=== PATIENT | male | born 1950 | race Caucasian/White ===

== ENCOUNTER 2016-08-07 11:48 | Inpatient (IN) | payer BC, MEDICARE ==
--- NOTE | ~2016-08-07 | DS ---
Discharge Summary [facility] [address] [facility] [place]. [address] NAME: PASTORA RODRIGUES : 48 STATUS : DIS IN PAT#: [id number] AGE: 65 ADM/REG DATE : 08/07/16 MR#: [id number] REPORT SERV DATE: 08/19/16 DICTATED BY: SARAHI WAGNER III DATE: 08/19/16 REPORT STATUS : Draft TRANSCRIBED BY: ROBINSON DATE: 08/19/16 Data Collection from hospitalization DISCHARGE DIAGNOSES: 1. Newton-zone lymphoma. 2. Hypertension. 3. Diabetes mellitus. 4. History of stroke. 5. Gastroesophageal reflux disease. 6. Hypertension. 7. Former smoker. CONSULTATIONS: None. PROCEDURES: None. DISCHARGE MEDICATIONS: Aspirin 325 mg daily, Prinivil 20 mg every day at bedtime, melatonin 6 mg at bedtime, Glucophage 500 mg at bedtime, fish oil 1000 mg daily, Prilosec 20 mg every day at bedtime, Zofran 8 mg every 8 hours as needed, Percocet 5/325 one tablet every four hours as needed, Compazine 10 mg every six hours as needed, Crestor 10 mg at bedtime, Bactrim DS one tablet three times a week, and Sonata 10 mg at bedtime as needed. CONDITION AT DISCHARGE: Stable. DISPOSITION: The patient was discharged home on a regular diet with activities as instructed. He would follow up with Dr. Venkat Woods on 08/13/2016, and with Dr. Woods on 08/16/2016. 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 He had completed cycle one of DA-R-EPOCH. He tolerated this were remarkably well. He denied any nausea. His bowels were regular. He did have some neuropathy in his fingers, but no pain, and no function deficit. Lymph node mass was greatly reduced. He denied any new complaints. He felt ready for chemotherapy. He was admitted to the hospital at this time for further evaluation and treatment. Upon admission, plans were made to proceed with cycle two chemotherapy. Statin and aspirin were continued. Metformin and sliding scale insulin would be provided. Neulasta would be arranged as an outpatient. The following day, day #2, cycle two continued. He had no problems overnight other than sleeping poorly. Blood pressure medications were continued, as well as Bactrim and proton pump inhibitor. Melatonin and Ambien were being given for his insomnia. On 08/09/2016, he had no nausea, he said he slept well. He had no edema. His lungs were clear. Blood sugars were elevated, but controlled with metformin and sliding scale insulin. Blood pressure remained controlled. The next day, he had no new complaints. Discharge planning was performed. Blood glucose levels were mildly elevated on prednisone. Discharge planning was performed. On 08/11/2016, he continued to progress. He was alert and cooperative. Discharge instructions were given. Due to his improved and stable condition, he was discharged home with the above-stated instructions. Discharge Summary [address] [address] NAME: PASTORA RODRIGUES : 48 STATUS : DIS IN PAT#: [id number] AGE: 65 ADM/REG DATE : 08/07/16 MR#: [id number] REPORT SERV DATE: 08/19/16 DICTATED BY: SARAHI WAGNER III DATE: 08/19/16 REPORT STATUS : Draft TRANSCRIBED BY: ROBINSON DATE: 08/19/16 Information collected by: Margaux Arreola I submit the above information as my discharge summary. EMANUEL/ROBINSON Sarahi Wagner III, M.D. / [id number] CC: MD Liborio Hurtado M.D.
[~2016-08-07 11:48] MED LIST: ASA5GR PO; BACDS PO; BENICAR20 PO; COMP10B PO; CRESTOR10 PO; FISH-EPA1000 MG PO; GLUCPH PO; MELATONIN10 M2 PO; PCET PO; PRILO PO; PRIN20 PO; SONATA10 MG PO; ZOFRANODT8 PO
[2016-08-07 12:59] LABS: BASOPHILS 0.3 %; BASOPHILS ABSOLUTE 0.03 10/3/uL (0.0-0.16); EOSINOPHILS 0 %; HEMATOCRIT 36.8 % (40.0-51.0); HEMOGLOBIN 12.4 g/dL (13.6-17.8); IMMATURE GRANULOCYTES 0.3 %; IMMATURE GRANULOCYTES ABSOLUTE 0.03 10/3/uL (0.0-0.11); LYMPHOCYTES 10.4 %; MANUAL DIFF NO %; MEAN CORPUS HGB CONC 33.7 g/dL (32.0-36.0); MEAN CORPUSCULAR HEMOGLOB 29.4 pg (26.0-34.0); MEAN CORPUSCULAR VOLUME 87.2 fL (80-100); MEAN PLATELET VOLUME 10.3 fL (9.2-13.0); MONOCYTES 6.9 %; NEUTROPHILS 82.1 %; NEUTROPHILS ABSOLUTE 7.09 10/3/uL (2.02-8.40); PLATELET COUNT 323 10/3/uL (150-400); RBC DISTRIBUTION WIDTH 14.1 % (12.0-16.0); RED CELL COUNT 4.22 10/6/uL (4.7-6.1); WHITE BLOOD CELLS 8.7 10/3/uL (4.5-10.5)
[2016-08-07 13:16] LABS: A/G RATIO 1.2 (0.7-1.9); ALBUMIN 3.7 G/DL (3.5-5.0); BUN (BLOOD UREA NITROGEN) 15 MG/DL (6-23); CALCIUM, SERUM 8.6 MG/DL (8.5-10.4); CHLORIDE, SERUM 103 MMOL/L (96-112); CO2 (CARBON DIOXIDE) 25 MMOL/L (24-34); CREATININE 0.77 MG/DL (0.70-1.30); GFR AFRICAN AMERICAN 110 ML/MIN (>=60); GFR NON AFRICAN AMERICAN 95 ML/MIN (>=60); GLOBULIN 3.2 G/DL (2.5-4.1); GLUCOSE, SERUM 123 MG/DL (60-99); POTASSIUM, SERUM 3.9 MMOL/L (3.5-5.3); SGOT(AST) 27 U/L (5-40); SGPT(ALT) 65 U/L (5-65); SODIUM, SERUM 138 MMOL/L (135-148); TOTAL PROTEIN 6.9 G/DL (6.0-8.5)
[2016-08-07 13:17] LABS: ALKALINE PHOSPHATASE 86 U/L (45-117); TOTAL BILIRUBIN 0.3 MG/DL (0-1.2)
[2016-08-08 04:20] LABS: BASOPHILS 0 %; EOSINOPHILS 0 %; HEMATOCRIT 34.8 % (40.0-51.0); HEMOGLOBIN 12.3 g/dL (13.6-17.8); IMMATURE GRANULOCYTES 0.3 %; IMMATURE GRANULOCYTES ABSOLUTE 0.04 10/3/uL (0.0-0.11); LYMPHOCYTES 4.2 %; LYMPHOCYTES ABSOLUTE 0.52 10/3/uL (0.67-4.30); MEAN CORPUS HGB CONC 35.3 g/dL (32.0-36.0); MEAN CORPUSCULAR HEMOGLOB 30.4 pg (26.0-34.0); MEAN CORPUSCULAR VOLUME 86.1 fL (80-100); MEAN PLATELET VOLUME 10.6 fL (9.2-13.0); MONOCYTES 0.9 %; MONOCYTES ABSOLUTE 0.11 10/3/uL (0.21-1.20); NEUTROPHILS 94.6 %; NEUTROPHILS ABSOLUTE 11.73 10/3/uL (2.02-8.40); PLATELET COUNT 397 10/3/uL (150-400); RBC DISTRIBUTION WIDTH 13.6 % (12.0-16.0); RED CELL COUNT 4.04 10/6/uL (4.7-6.1)
[2016-08-08 04:24] LABS: MANUAL DIFF NO %; WHITE BLOOD CELLS 12.4 10/3/uL (4.5-10.5)
[2016-08-08 04:30] LABS: BUN (BLOOD UREA NITROGEN) 12 MG/DL (6-23); CHLORIDE, SERUM 103 MMOL/L (96-112); CO2 (CARBON DIOXIDE) 25 MMOL/L (24-34); CREATININE 0.77 MG/DL (0.70-1.30); GFR AFRICAN AMERICAN 110 ML/MIN (>=60); GFR NON AFRICAN AMERICAN 95 ML/MIN (>=60); GLUCOSE, SERUM 154 MG/DL (60-99); POTASSIUM, SERUM 4.3 MMOL/L (3.5-5.3); SODIUM, SERUM 139 MMOL/L (135-148)
[2016-08-10 08:05] LABS: BASOPHILS 0 %; EOSINOPHILS 0 %; HEMATOCRIT 33.6 % (40.0-51.0); HEMOGLOBIN 11.6 g/dL (13.6-17.8); IMMATURE GRANULOCYTES 0.1 %; IMMATURE GRANULOCYTES ABSOLUTE 0.01 10/3/uL (0.0-0.11); LYMPHOCYTES 5.8 %; MEAN CORPUS HGB CONC 34.5 g/dL (32.0-36.0); MEAN CORPUSCULAR HEMOGLOB 29.5 pg (26.0-34.0); MEAN CORPUSCULAR VOLUME 85.5 fL (80-100); MEAN PLATELET VOLUME 10.2 fL (9.2-13.0); MONOCYTES 5.6 %; MONOCYTES ABSOLUTE 0.48 10/3/uL (0.21-1.20); NEUTROPHILS 88.5 %; NEUTROPHILS ABSOLUTE 7.63 10/3/uL (2.02-8.40); PLATELET COUNT 400 10/3/uL (150-400); RBC DISTRIBUTION WIDTH 14.3 % (12.0-16.0); RED CELL COUNT 3.93 10/6/uL (4.7-6.1); WHITE BLOOD CELLS 8.6 10/3/uL (4.5-10.5)
[2016-08-10 08:10] LABS: MANUAL DIFF NO %
[2016-08-10 08:12] LABS: BUN (BLOOD UREA NITROGEN) 17 MG/DL (6-23); CALCIUM, SERUM 8.1 MG/DL (8.5-10.4); CHLORIDE, SERUM 106 MMOL/L (96-112); CO2 (CARBON DIOXIDE) 26 MMOL/L (24-34); CREATININE 0.84 MG/DL (0.70-1.30); GFR AFRICAN AMERICAN 106 ML/MIN (>=60); GFR NON AFRICAN AMERICAN 91 ML/MIN (>=60); GLUCOSE, SERUM 177 MG/DL (60-99); POTASSIUM, SERUM 3.7 MMOL/L (3.5-5.3); SODIUM, SERUM 141 MMOL/L (135-148)
== END 2016-08-11 21:55 | disposition home or self-care (01) | DRG 847 ==
LOC: 4EA 11:48
PROVIDERS: Internal Medicine Hematology & Oncology
DX: Z51.11 Encounter for antineoplastic chemotherapy (principal); C85.80 Other specified types of non-Hodgkin lymphoma, unspecified site; I10 Essential (primary) hypertension; E11.9 Type 2 diabetes mellitus without complications; G47.00 Insomnia, unspecified; Z86.73 Personal history of transient ischemic attack (TIA), and cerebral infarction without residual deficits
CPT/HCPCS: 80048; 80053; 82962; 83615; 83735; 84550; 85025; A9270-GY; J1652; J2405; J9000; J9070; J9181; J9310; J9370

== ENCOUNTER 2016-08-28 11:51 | Inpatient (IN) | payer BC, MEDICARE ==
--- NOTE | ~2016-08-28 | DS ---
Discharge Summary [facility] [address] [place]. [address] NAME: PASTORA RODRIGUES : 48 STATUS : DIS IN PAT#: [id number] AGE: 65 ADM/REG DATE : 08/28/16 MR#: [id number] REPORT SERV DATE: 09/11/16 DICTATED BY: VENKAT WOODS DATE: 09/10/16 REPORT STATUS : Draft TRANSCRIBED BY: ROBINSON DATE: 09/10/16 Data Collection from hospitalization DISCHARGE DIAGNOSES: 1. Non-Hodgkin lymphoma. 2. Status post R-EPOCH chemotherapy. CONSULTATIONS: None. PROCEDURES PERFORMED: None. MEDICATIONS: Aspirin 325 mg daily; Prinivil 20 mg at bedtime; melatonin 6 mg at bedtime; fish oil 1000 mg daily; Prilosec 20 mg at bedtime; Bactrim DS 1 three times weekly on Friday, Friday, and Friday; Glucophage 500 mg at bedtime; Zofran 8 mg every 8 hours as needed; Crestor 10 mg at bedtime; Sonata 10 mg at bedtime as needed; Percocet 5/325 one every 4 hours as needed; Compazine 10 mg every 6 hours as needed; Claritin 10 mg, takes it a day before Neulasta for 3 days. CONDITION AT DISCHARGE: Upon discharge, he did appear to be doing well and had no complaints. DISPOSITION: He was discharged home to continue a regular diet with activity as tolerated. He was to follow up on 09/02/2016 for Neulasta injection. Follow up with dc for an appointment on 09/05/2016 and again on 09/09/2016 and 09/13/2016. 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 He completed cycle 2 of DA-REPOCH and he tolerated this remarkably well. He denied any nausea and had only taken one Zofran over three weeks prior to admission. His bowels were regular. He did have some neuropathy in his fingers, but no pain and no function deficit. He had been stable since his last visit. His lymph node mass was noted to be greatly reduced. He did still have residual lesions, but small and soft. He denied any new complaints and was ready for his third cycle of chemotherapy. He was admitted for this and further treatment. Upon admission to the hospital, he had been placed on chemotherapy orders as directed. He was begun on a 2200 calorie ADA regular diet. He had been placed on level 1 sliding scale insulin as well as electrolyte replacement protocol. He was also placed on Protonix 40 mg orally daily, Ambien 10 mg at bedtime as needed, Ativan 0.5 mg IV or orally every six hours as needed, Zofran 8 mg IV or orally every 8 hours as needed, Phenergan 12.5 mg orally every 4 hours as needed, Phenergan 6.25 to 12.5 mg IV every 4 hours as needed, aspirin 81 mg daily, Crestor 10 mg, lisinopril 20 mg daily, metformin 500 mg daily, oxycodone 5 mg every 6 hours as needed, Bactrim DS Friday, Friday, and Friday. Following the day of admission, he had no complaints other than difficulty sleeping after being woke up after 11 p.m. He was afebrile, and his vital signs had remained stable. He was continued on chemotherapy on 08/30. He did continue to do well and had no complaints of nausea noted. He was continued on his current medications and did appear to be tolerating chemotherapy. On 08/31/2016, he did continue to do well and was felt to be clinically stable. He had remained in stable condition, and on 09/01/2016 with completion of his chemotherapy, he was then discharged with the above instructions. Discharge Summary [address] [address] NAME: PASTORA RODRIGUES : 48 STATUS : DIS IN PAT#: [id number] AGE: 65 ADM/REG DATE : 08/28/16 MR#: [id number] REPORT SERV DATE: 09/11/16 DICTATED BY: VENKAT WOODS DATE: 09/10/16 REPORT STATUS : Draft TRANSCRIBED BY: MODL DATE: 09/10/16 Information collected by: Atif RíosI.T. I submit the above information as my discharge summary. RW/MODL Venkat Woods MD / [id number] CC: Venkat Woods MD
[2016-08-28] MEDS ORDERED: CLARIT10 PO (18:27)
[2016-08-29 08:58] LABS: BASOPHILS 0.1 %; BASOPHILS ABSOLUTE 0.01 10/3/uL (0.0-0.16); EOSINOPHILS 0.1 %; EOSINOPHILS ABSOLUTE 0.01 10/3/uL (0.0-0.53); HEMATOCRIT 34.3 % (40.0-51.0); HEMOGLOBIN 11.5 g/dL (13.6-17.8); IMMATURE GRANULOCYTES 0.2 %; IMMATURE GRANULOCYTES ABSOLUTE 0.04 10/3/uL (0.0-0.11); LYMPHOCYTES 3.9 %; LYMPHOCYTES ABSOLUTE 0.72 10/3/uL (0.67-4.30); MEAN CORPUS HGB CONC 33.5 g/dL (32.0-36.0); MEAN CORPUSCULAR VOLUME 86.6 fL (80-100); MONOCYTES 2.6 %; MONOCYTES ABSOLUTE 0.48 10/3/uL (0.21-1.20); NEUTROPHILS 93.1 %; NEUTROPHILS ABSOLUTE 16.99 10/3/uL (2.02-8.40); PLATELET COUNT 326 10/3/uL (150-400); RBC DISTRIBUTION WIDTH 15.2 % (12.0-16.0); RED CELL COUNT 3.96 10/6/uL (4.7-6.1)
[2016-08-29 08:59] LABS: MANUAL DIFF NO %; WHITE BLOOD CELLS 18.3 10/3/uL (4.5-10.5)
[2016-08-29 09:11] LABS: BUN (BLOOD UREA NITROGEN) 10 MG/DL (6-23); CALCIUM, SERUM 8.5 MG/DL (8.5-10.4); CHLORIDE, SERUM 104 MMOL/L (96-112); CO2 (CARBON DIOXIDE) 25 MMOL/L (24-34); CREATININE 0.82 MG/DL (0.70-1.30); GFR AFRICAN AMERICAN 107 ML/MIN (>=60); GFR NON AFRICAN AMERICAN 92 ML/MIN (>=60); GLUCOSE, SERUM 207 MG/DL (60-99); POTASSIUM, SERUM 3.8 MMOL/L (3.5-5.3); SODIUM, SERUM 139 MMOL/L (135-148)
[2016-08-31 06:54] LABS: BASOPHILS 0.1 %; BASOPHILS ABSOLUTE 0.01 10/3/uL (0.0-0.16); EOSINOPHILS 0 %; HEMATOCRIT 31.1 % (40.0-51.0); HEMOGLOBIN 10.4 g/dL (13.6-17.8); IMMATURE GRANULOCYTES 0.2 %; IMMATURE GRANULOCYTES ABSOLUTE 0.02 10/3/uL (0.0-0.11); LYMPHOCYTES ABSOLUTE 0.56 10/3/uL (0.67-4.30); MEAN CORPUS HGB CONC 33.4 g/dL (32.0-36.0); MEAN CORPUSCULAR HEMOGLOB 29.5 pg (26.0-34.0); MEAN CORPUSCULAR VOLUME 88.4 fL (80-100); MEAN PLATELET VOLUME 10.2 fL (9.2-13.0); MONOCYTES 6.1 %; MONOCYTES ABSOLUTE 0.69 10/3/uL (0.21-1.20); NEUTROPHILS 88.6 %; PLATELET COUNT 335 10/3/uL (150-400); RBC DISTRIBUTION WIDTH 15.8 % (12.0-16.0); RED CELL COUNT 3.52 10/6/uL (4.7-6.1); WHITE BLOOD CELLS 11.3 10/3/uL (4.5-10.5)
[2016-08-31 06:56] LABS: MANUAL DIFF NO %
[2016-08-31 07:04] LABS: CALCIUM, SERUM 8.3 MG/DL (8.5-10.4); CHLORIDE, SERUM 105 MMOL/L (96-112); CO2 (CARBON DIOXIDE) 28 MMOL/L (24-34); GFR AFRICAN AMERICAN 114 ML/MIN (>=60); GFR NON AFRICAN AMERICAN 98 ML/MIN (>=60); POTASSIUM, SERUM 4.1 MMOL/L (3.5-5.3); SODIUM, SERUM 143 MMOL/L (135-148)
[2016-08-31 07:06] LABS: BUN (BLOOD UREA NITROGEN) 15 MG/DL (6-23); GLUCOSE, SERUM 139 MG/DL (60-99)
== END 2016-09-01 18:43 | disposition home or self-care (01) | DRG 847 ==
LOC: 4EA 11:51
PROVIDERS: Internal Medicine Hematology & Oncology
DX: Z51.11 Encounter for antineoplastic chemotherapy (principal); C85.90 Non-Hodgkin lymphoma, unspecified, unspecified site; I10 Essential (primary) hypertension; E11.9 Type 2 diabetes mellitus without complications; G47.00 Insomnia, unspecified
CPT/HCPCS: 80048; 82962; 83735; 85025; A9270-GY; J1652; J2405; J9000; J9070; J9181; J9310; J9370

== ENCOUNTER 2016-09-25 10:14 | Inpatient (IN) | payer BC, MEDICARE ==
--- NOTE | ~2016-09-25 | DS ---
Discharge Summary [facility] [address] [facility] [place]. [address] NAME: PASTORA RODRIGUES : 48 STATUS : DIS IN PAT#: [id number] AGE: 65 ADM/REG DATE : 09/25/16 MR#: [id number] REPORT SERV DATE: 10/09/16 DICTATED BY: NAHUN THOMAS DATE: 10/08/16 REPORT STATUS : Draft TRANSCRIBED BY: MODVivek DATE: 10/08/16 Data Collection from hospitalization DISCHARGE DIAGNOSES: 1. Lymphoma. 2. . 3. Former smoker. 4. History of cerebrovascular accident. CONSULTATIONS: None. PROCEDURES PERFORMED: None. DISCHARGE MEDICATIONS: Aspirin 325 mg at bedtime, Lexapro 10 mg at bedtime, Prinivil 20 mg every day at bedtime, Claritin 10 mg as instructed, melatonin 10 mg at bedtime, Glucophage 500 mg at bedtime, fish oil 1000 mg at bedtime, Prilosec 20 mg every day at bedtime, Zofran 8 mg every eight hours as needed, Compazine 10 mg every six hours as needed, Crestor 10 mg at bedtime, Bactrim DS one tablet three times a week, Sonata 10 mg at bedtime as needed. CONDITION AT DISCHARGE: Stable. DISPOSITION: The patient was discharged home on a 2200-calorie diabetic diet with activities as instructed. He would follow up with Dr. Venkat Woods, 09/30/2016, 10/03/2016, 10/07/2016, 10/10/2016, and 10/16/2016. 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 The patient was going to undergo cycle 4 of DA-REPOCH. He was admitted to the hospital at this time for further evaluation and treatment. Upon admission, statin and aspirin were continued. Accu-Cheks would be performed and sliding scale insulin would be provided. Metformin was continued. Vincristine was held for now. Neulasta would be planned on discharge. Proton pump inhibitor and Arixtra were continued as well as Bactrim DS. Lexapro was continued for his depression. The following day, chemotherapy treatment continued. His anemia was felt secondary to chemotherapy. Blood pressure was controlled with lisinopril. Melatonin and Ambien were given for his insomnia. On 09/27/2016, he was afebrile. He was tolerating chemotherapy well. Hemoglobin was stable. He did have trace edema. Discharge planning was performed. On 09/29/2016, he completed his chemotherapy. He was doing okay and was in no distress. Discharge instructions were given. Due to his improved and stable condition, he was discharged home with the above-stated instructions. Information collected by: Margaux Arreola I submit the above information as my discharge summary. TG/MODL Discharge Summary [facility] [address] [facility] [place]. [address] NAME: PASTORA RODRIGUES : 48 STATUS : DIS IN PAT#: [id number] AGE: 65 ADM/REG DATE : 09/25/16 MR#: [id number] REPORT SERV DATE: 10/09/16 DICTATED BY: NAHUN THOMAS DATE: 10/08/16 REPORT STATUS : Draft TRANSCRIBED BY: ROBINSON DATE: 10/08/16 Nahun Thomas M.D. / [id number] CC: MD Liborio Hurtado M.D.
[~2016-09-25 10:14] MED LIST changes: +CLARIT10 PO
[2016-09-25 11:55] LABS: BASOPHILS 0.4 %; BASOPHILS ABSOLUTE 0.02 10/3/uL (0.0-0.16); EOSINOPHILS 0 %; HEMATOCRIT 33.4 % (40.0-51.0); HEMOGLOBIN 11.4 g/dL (13.6-17.8); LYMPHOCYTES 14.5 %; LYMPHOCYTES ABSOLUTE 0.79 10/3/uL (0.67-4.30); MANUAL DIFF NO %; MEAN CORPUS HGB CONC 34.1 g/dL (32.0-36.0); MEAN CORPUSCULAR HEMOGLOB 30.4 pg (26.0-34.0); MEAN CORPUSCULAR VOLUME 89.1 fL (80-100); MEAN PLATELET VOLUME 9.9 fL (9.2-13.0); MONOCYTES 15.3 %; MONOCYTES ABSOLUTE 0.83 10/3/uL (0.21-1.20); NEUTROPHILS 69.8 %; PLATELET COUNT 319 10/3/uL (150-400); RBC DISTRIBUTION WIDTH 16.8 % (12.0-16.0); RED CELL COUNT 3.75 10/6/uL (4.7-6.1); WHITE BLOOD CELLS 5.4 10/3/uL (4.5-10.5)
[2016-09-25 12:08] LABS: A/G RATIO 1.1 (0.7-1.9); ALBUMIN 3.8 G/DL (3.5-5.0); ALKALINE PHOSPHATASE 95 U/L (45-117); CALCIUM, SERUM 8.8 MG/DL (8.5-10.4); CHLORIDE, SERUM 102 MMOL/L (96-112); CO2 (CARBON DIOXIDE) 25 MMOL/L (24-34); GFR AFRICAN AMERICAN 108 ML/MIN (>=60); GFR NON AFRICAN AMERICAN 93 ML/MIN (>=60); GLOBULIN 3.5 G/DL (2.5-4.1); GLUCOSE, SERUM 123 MG/DL (60-99); POTASSIUM, SERUM 4.2 MMOL/L (3.5-5.3); SGOT(AST) 22 U/L (5-40); SGPT(ALT) 45 U/L (5-65); SODIUM, SERUM 138 MMOL/L (135-148); TOTAL BILIRUBIN 0.5 MG/DL (0-1.2); TOTAL PROTEIN 7.3 G/DL (6.0-8.5)
[2016-09-25 12:09] LABS: BUN (BLOOD UREA NITROGEN) 10 MG/DL (6-23)
[2016-09-25] MEDS ORDERED: LEXAPRO10 PO (12:34)
[2016-09-27 07:15] LABS: BASOPHILS 0 %; EOSINOPHILS 0 %; HEMATOCRIT 34.3 % (40.0-51.0); HEMOGLOBIN 11.3 g/dL (13.6-17.8); IMMATURE GRANULOCYTES 0.2 %; IMMATURE GRANULOCYTES ABSOLUTE 0.02 10/3/uL (0.0-0.11); LYMPHOCYTES 5.4 %; LYMPHOCYTES ABSOLUTE 0.63 10/3/uL (0.67-4.30); MEAN CORPUS HGB CONC 32.9 g/dL (32.0-36.0); MEAN CORPUSCULAR HEMOGLOB 29.7 pg (26.0-34.0); MEAN PLATELET VOLUME 9.8 fL (9.2-13.0); MONOCYTES 7.9 %; MONOCYTES ABSOLUTE 0.92 10/3/uL (0.21-1.20); NEUTROPHILS 86.5 %; NEUTROPHILS ABSOLUTE 10.13 10/3/uL (2.02-8.40); PLATELET COUNT 345 10/3/uL (150-400); RBC DISTRIBUTION WIDTH 16.9 % (12.0-16.0); RED CELL COUNT 3.81 10/6/uL (4.7-6.1)
[2016-09-27 07:16] LABS: MANUAL DIFF NO %; WHITE BLOOD CELLS 11.7 10/3/uL (4.5-10.5)
[2016-09-27 07:22] LABS: CHLORIDE, SERUM 106 MMOL/L (96-112); POTASSIUM, SERUM 4.1 MMOL/L (3.5-5.3); SODIUM, SERUM 140 MMOL/L (135-148)
[2016-09-27 07:29] LABS: BUN (BLOOD UREA NITROGEN) 11 MG/DL (6-23); CALCIUM, SERUM 9.1 MG/DL (8.5-10.4); CO2 (CARBON DIOXIDE) 23 MMOL/L (24-34); CREATININE 0.79 MG/DL (0.70-1.30); GFR AFRICAN AMERICAN 108 ML/MIN (>=60); GFR NON AFRICAN AMERICAN 94 ML/MIN (>=60); GLUCOSE, SERUM 122 MG/DL (60-99)
[2016-09-29 06:18] LABS: BASOPHILS 0 %; EOSINOPHILS 0 %; HEMOGLOBIN 10.3 g/dL (13.6-17.8); IMMATURE GRANULOCYTES 0.2 %; IMMATURE GRANULOCYTES ABSOLUTE 0.01 10/3/uL (0.0-0.11); LYMPHOCYTES 10.3 %; LYMPHOCYTES ABSOLUTE 0.59 10/3/uL (0.67-4.30); MEAN CORPUS HGB CONC 33.8 g/dL (32.0-36.0); MEAN CORPUSCULAR VOLUME 88.9 fL (80-100); MEAN PLATELET VOLUME 10.3 fL (9.2-13.0); MONOCYTES 5.8 %; MONOCYTES ABSOLUTE 0.33 10/3/uL (0.21-1.20); NEUTROPHILS 83.7 %; NEUTROPHILS ABSOLUTE 4.78 10/3/uL (2.02-8.40); PLATELET COUNT 265 10/3/uL (150-400); RBC DISTRIBUTION WIDTH 16.5 % (12.0-16.0); RED CELL COUNT 3.43 10/6/uL (4.7-6.1)
[2016-09-29 06:19] LABS: HEMATOCRIT 30.5 % (40.0-51.0); MANUAL DIFF NO %; WHITE BLOOD CELLS 5.7 10/3/uL (4.5-10.5)
[2016-09-29 06:27] LABS: BUN (BLOOD UREA NITROGEN) 17 MG/DL (6-23); CALCIUM, SERUM 8.6 MG/DL (8.5-10.4); CHLORIDE, SERUM 106 MMOL/L (96-112); CO2 (CARBON DIOXIDE) 27 MMOL/L (24-34); GFR AFRICAN AMERICAN 108 ML/MIN (>=60); GFR NON AFRICAN AMERICAN 93 ML/MIN (>=60); GLUCOSE, SERUM 132 MG/DL (60-99); POTASSIUM, SERUM 4.2 MMOL/L (3.5-5.3); SODIUM, SERUM 139 MMOL/L (135-148)
== END 2016-09-29 20:00 | disposition home or self-care (01) | DRG 847 ==
LOC: 4EA 10:14
PROVIDERS: Internal Medicine Hematology & Oncology
DX: Z51.11 Encounter for antineoplastic chemotherapy (principal); C85.10 Unspecified B-cell lymphoma, unspecified site; E11.9 Type 2 diabetes mellitus without complications; G47.00 Insomnia, unspecified; E78.5 Hyperlipidemia, unspecified; D64.9 Anemia, unspecified
CPT/HCPCS: 80048; 80053; 82962; 83615; 83735; 85025; A9270-GY; J1652; J2405; J9000; J9070; J9181; J9310

== ENCOUNTER 2016-10-23 09:48 | Inpatient (IN) | payer BC, MEDICARE ==
--- NOTE | ~2016-10-23 | DS ---
Discharge Summary [facility] [address] [facility] [place]. [address] NAME: PASTORA RODRIGUES : 48 STATUS : DIS IN PAT#: [id number] AGE: 66 ADM/REG DATE : 10/23/16 MR#: [id number] REPORT SERV DATE: 12/27/16 DICTATED BY: VENKAT WOODS DATE: 12/27/16 REPORT STATUS : Draft TRANSCRIBED BY: ROBINSON DATE: 12/27/16 Data Collection from hospitalization DISCHARGE DIAGNOSES: 1. Walsh zone non-Hodgkin lymphoma. 2. Hypertension. 3. Hyperlipidemia. 4. Gastroesophageal reflux disease. 5. Former smoker. 6. Insomnia. CONSULTATIONS: None. PROCEDURES PERFORMED: None. MEDICATIONS: Aspirin 325 mg at bedtime, Lexapro 10 mg at bedtime, Prinivil 20 mg every day at bedtime, Claritin 10 mg as instructed, melatonin 10 mg at bedtime, Glucophage 500 mg at bedtime, fish oil 1200 mg at bedtime, Prilosec 20 mg every day at bedtime, Zofran 8 mg every eight hours as needed, Compazine 10 mg every six hours as needed, Crestor 10 mg at bedtime, Bactrim DS one tablet three times a week as instructed, Sonata 10 mg at bedtime as needed. CONDITION AT DISCHARGE: Stable. DISPOSITION: The patient was discharged home on a 2200-calorie diabetic diet with activities as instructed. He would follow up with me, 10/31/2016, 11/13/2016, 11/04/2016, and 11/07/2016. He would have a Neulasta shot at [facility], 10/29/2016. HOSPITAL COURSE: This is a 65-year-old man, who has morfin zone non-Hodgkin lymphoma. He had completed cycle 4 of DA-R-EPOCH. Cycle 5 had been delayed for low platelets. He had done well over the past week with minimal tingling and numbness in his fingers. His one mouth sore had resolved. It was felt that he could now begin cycle 5 chemotherapy. He was admitted to the hospital for further evaluation and treatment. Upon admission, chemotherapy treatment was begun. The following day, he had no complaints. He was afebrile. There was no erythema about the port in the right chest. Lisinopril was being given for his hypertension. The patient does have insomnia. Melatonin and Ambien were provided. Bactrim and Arixtra were being given. Protonix was started. On 10/25/2016, he had no nausea, vomiting, or abdominal pain. He had no complaints of chest pain. Hemoglobin level was stable. He had no issues with chemotherapy. The next day, he felt well. Discharge planning was performed. Blood pressure control was okay. On 10/27/2016, he had no nausea or vomiting. He was alert and cooperative. Discharge instructions were given. He was going to receive Neulasta Friday following discharge. Due to his improved and stable condition, he was discharged home with the above-stated instructions. Information collected by: Margaux Arreola I submit the above information as my discharge summary. Discharge Summary [address] [address] NAME: PASTORA RODRIGUES : 48 STATUS : DIS IN PAT#: [id number] AGE: 66 ADM/REG DATE : 10/23/16 MR#: [id number] REPORT SERV DATE: 12/27/16 DICTATED BY: VENKAT WOODS DATE: 12/27/16 REPORT STATUS : Draft TRANSCRIBED BY: ROBINSON DATE: 12/27/16 TG/ROBINSON Venkat Woods MD / [id number] CC: MD Liborio Hurtado M.D.
[~2016-10-23 09:48] MED LIST changes: +LEXAPRO10 PO
[2016-10-23 13:02] LABS: HEMATOCRIT 31.3 % (40.0-51.0); HEMOGLOBIN 10.4 g/dL (13.6-17.8); PLATELET COUNT 314 10/3/uL (150-400)
[2016-10-23 13:11] LABS: PHOSPHORUS, SERUM 2.7 MG/DL (2.5-4.5)
[2016-10-25 06:28] LABS: BASOPHILS 0 %; EOSINOPHILS 0 %; HEMATOCRIT 32.5 % (40.0-51.0); HEMOGLOBIN 10.8 g/dL (13.6-17.8); IMMATURE GRANULOCYTES 0.3 %; IMMATURE GRANULOCYTES ABSOLUTE 0.03 10/3/uL (0.0-0.11); LYMPHOCYTES ABSOLUTE 0.65 10/3/uL (0.67-4.30); MEAN CORPUS HGB CONC 33.2 g/dL (32.0-36.0); MEAN CORPUSCULAR HEMOGLOB 30.4 pg (26.0-34.0); MEAN CORPUSCULAR VOLUME 91.5 fL (80-100); MEAN PLATELET VOLUME 9.8 fL (9.2-13.0); MONOCYTES ABSOLUTE 0.46 10/3/uL (0.21-1.20); NEUTROPHILS 87.7 %; NEUTROPHILS ABSOLUTE 8.12 10/3/uL (2.02-8.40); PLATELET COUNT 340 10/3/uL (150-400); RBC DISTRIBUTION WIDTH 15.5 % (12.0-16.0); RED CELL COUNT 3.55 10/6/uL (4.7-6.1)
[2016-10-25 06:29] LABS: MANUAL DIFF NO %; WHITE BLOOD CELLS 9.3 10/3/uL (4.5-10.5)
[2016-10-25 09:24] LABS: BUN (BLOOD UREA NITROGEN) 14 MG/DL (6-23); CHLORIDE, SERUM 107 MMOL/L (96-112); CO2 (CARBON DIOXIDE) 28 MMOL/L (24-34); CREATININE 0.67 MG/DL (0.70-1.30); GFR AFRICAN AMERICAN 116 ML/MIN (>=60); GFR NON AFRICAN AMERICAN 100 ML/MIN (>=60); GLUCOSE, SERUM 124 MG/DL (60-99); SODIUM, SERUM 141 MMOL/L (135-148)
[2016-10-27 05:26] LABS: BASOPHILS 0 %; EOSINOPHILS 0 %; HEMOGLOBIN 9.3 g/dL (13.6-17.8); IMMATURE GRANULOCYTES 0.2 %; IMMATURE GRANULOCYTES ABSOLUTE 0.01 10/3/uL (0.0-0.11); LYMPHOCYTES 12.7 %; LYMPHOCYTES ABSOLUTE 0.58 10/3/uL (0.67-4.30); MEAN CORPUSCULAR HEMOGLOB 30.5 pg (26.0-34.0); MEAN CORPUSCULAR VOLUME 92.5 fL (80-100); MEAN PLATELET VOLUME 10.1 fL (9.2-13.0); MONOCYTES 3.3 %; MONOCYTES ABSOLUTE 0.15 10/3/uL (0.21-1.20); NEUTROPHILS 83.8 %; NEUTROPHILS ABSOLUTE 3.84 10/3/uL (2.02-8.40); PLATELET COUNT 238 10/3/uL (150-400); RBC DISTRIBUTION WIDTH 15.6 % (12.0-16.0); RED CELL COUNT 3.05 10/6/uL (4.7-6.1)
[2016-10-27 05:29] LABS: HEMATOCRIT 28.2 % (40.0-51.0); MANUAL DIFF NO %; WHITE BLOOD CELLS 4.6 10/3/uL (4.5-10.5)
[2016-10-27 05:45] LABS: BUN (BLOOD UREA NITROGEN) 16 MG/DL (6-23); CALCIUM, SERUM 8.7 MG/DL (8.5-10.4); CHLORIDE, SERUM 109 MMOL/L (96-112); CO2 (CARBON DIOXIDE) 26 MMOL/L (24-34); CREATININE 0.63 MG/DL (0.70-1.30); GFR AFRICAN AMERICAN 119 ML/MIN (>=60); GFR NON AFRICAN AMERICAN 103 ML/MIN (>=60); GLUCOSE, SERUM 114 MG/DL (60-99); POTASSIUM, SERUM 4.1 MMOL/L (3.5-5.3); SODIUM, SERUM 143 MMOL/L (135-148)
== END 2016-10-27 16:50 | disposition home or self-care (01) | DRG 847 ==
LOC: 4SO 09:48 → 4EA 12:28
PROVIDERS: Internal Medicine Hematology & Oncology
DX: Z51.11 Encounter for antineoplastic chemotherapy (principal); C85.80 Other specified types of non-Hodgkin lymphoma, unspecified site; I10 Essential (primary) hypertension; G47.00 Insomnia, unspecified
CPT/HCPCS: 36415; 80048; 82962; 83735; 84100; 85014; 85018; 85025; 85049; 86850; 86900; 86901; A9270-GY; J1652; J2405; J9000; J9070; J9181; J9310

== ENCOUNTER 2016-11-13 11:38 | Inpatient (IN) | payer BC, MEDICARE ==
--- NOTE | ~2016-11-13 | DS ---
Discharge Summary [facility] [address] [facility] [place]. [address] NAME: PASTORA RODRIGUES : 48 STATUS : DIS IN PAT#: [id number] AGE: 66 ADM/REG DATE : 11/13/16 MR#: [id number] REPORT SERV DATE: 11/30/16 DICTATED BY: VENKAT WOODS DATE: 11/29/16 REPORT STATUS : Draft TRANSCRIBED BY: ROBINSON DATE: 11/29/16 Data Collection from hospitalization DISCHARGE DIAGNOSIS(ES): 1. Newton zone non-Hodgkin lymphoma. 2. Hypertension. 3. Diabetes. 4. Gastroesophageal reflux disease. 5. History of stroke. 6. Hyperlipidemia. 7. Major depressive disorder. 8. Former smoker. CONSULTATIONS: None. PROCEDURES PERFORMED: None. MEDICATIONS: Ecotrin 325 mg at bedtime, Lexapro 10 mg at bedtime, Zestril 20 mg at bedtime, Claritin 10 mg for three days as instructed, melatonin 10 mg at bedtime, Glucophage 500 mg at bedtime, fish oil 1200 mg at bedtime, Prilosec 20 mg at bedtime, Zofran 8 mg every 8 hours as needed, Neulasta 6 mg subcutaneously as directed, Compazine 10 mg every six hours as needed, Crestor 10 mg at bedtime, and sonata 10 mg at bedtime as needed. CONDITION AT DISCHARGE: Stable. DISPOSITION: The patient was discharged home on a 2200-calorie diabetic diet with activities as instructed. He would follow up with me as scheduled. HOSPITAL COURSE: This is a 66-year-old man who has Newton zone lymphoma. He had completed cycle 5 of DA-R-EPOCH. He had tolerated treatment well. His neuropathy had improved. He had minimal tingling and numbness in his fingers. His fatigue had been manageable. His depression was much better. He was going to be admitted to begin cycle 6 chemotherapy. He was admitted to the hospital at this time for further evaluation and treatment. Upon admission, cycle 6 chemotherapy was started. He was afebrile. He had no nausea or other complaints. He had no edema. BREANNA inhibitor was being provided. He was being given melatonin and Ambien for his insomnia. On the , he remained afebrile. He had no nausea. He was doing well. His lungs were clear. Cycle 6 day 3 of chemotherapy was going well. Blood pressure was controlled. Proton pump inhibitor was continued. Over the next couple of days, he had no complaints. Discharge planning was performed. On 11/17/2016, he continued to do well. He was alert and cooperative. Discharge instructions were given. Due to his improved and stable condition, he was discharged home with the above-stated instructions. Information collected by: Margaux Arreola I submit the above information as my discharge summary. Discharge Summary [address] [address] NAME: PASTORA RODRIGUES : 48 STATUS : DIS IN PAT#: [id number] AGE: 66 ADM/REG DATE : 11/13/16 MR#: [id number] REPORT SERV DATE: 11/30/16 DICTATED BY: VENKAT WOODS DATE: 11/29/16 REPORT STATUS : Draft TRANSCRIBED BY: ROBINSON DATE: 11/29/16 TG/ROBINSON Venkat Woods MD / [id number] CC: MD Liborio Hurtado M.D.
[2016-11-13] MEDS ORDERED: LEXAPRO10 PO (14:16)
[2016-11-13] MEDS ORDERED: ASAEC PO (14:16)
[2016-11-13] MEDS ORDERED: ZESTRIL20 MG PO (14:17)
[2016-11-13] MEDS ORDERED: CLARIT10 PO (14:20)
[2016-11-13] MEDS ORDERED: NEULASTA SC (14:21)
[2016-11-13] MEDS ORDERED: MELATONIN10 M2 PO (14:22)
[2016-11-13] MEDS ORDERED: FISH OIL1200 MG PO (14:22)
[2016-11-13] MEDS ORDERED: GLUCPH PO (14:22)
[2016-11-13] MEDS ORDERED: COMP10B PO (14:23)
[2016-11-13] MEDS ORDERED: PRILO PO (14:23)
[2016-11-13] MEDS ORDERED: ZOFRANODT8 PO (14:23)
[2016-11-13] MEDS ORDERED: SONATA10 MG PO (14:24)
[2016-11-13] MEDS ORDERED: CRESTOR10 PO (14:24)
[2016-11-14 07:24] LABS: BASOPHILS 0 %; EOSINOPHILS 0 %; HEMOGLOBIN 10.6 g/dL (13.6-17.8); IMMATURE GRANULOCYTES 0.4 %; IMMATURE GRANULOCYTES ABSOLUTE 0.04 10/3/uL (0.0-0.11); LYMPHOCYTES 4.8 %; LYMPHOCYTES ABSOLUTE 0.53 10/3/uL (0.67-4.30); MANUAL DIFF NO %; MEAN CORPUS HGB CONC 33.1 g/dL (32.0-36.0); MEAN CORPUSCULAR HEMOGLOB 30.3 pg (26.0-34.0); MEAN CORPUSCULAR VOLUME 91.4 fL (80-100); MEAN PLATELET VOLUME 10.4 fL (9.2-13.0); MONOCYTES 1.5 %; MONOCYTES ABSOLUTE 0.16 10/3/uL (0.21-1.20); NEUTROPHILS 93.3 %; NEUTROPHILS ABSOLUTE 10.25 10/3/uL (2.02-8.40); PLATELET COUNT 330 10/3/uL (150-400); RBC DISTRIBUTION WIDTH 15.7 % (12.0-16.0)
[2016-11-14 07:26] LABS: CALCIUM, SERUM 8.8 MG/DL (8.5-10.4); CHLORIDE, SERUM 108 MMOL/L (96-112); POTASSIUM, SERUM 4.1 MMOL/L (3.5-5.3); SODIUM, SERUM 142 MMOL/L (135-148)
[2016-11-14 07:31] LABS: BUN (BLOOD UREA NITROGEN) 10 MG/DL (6-23); CO2 (CARBON DIOXIDE) 23 MMOL/L (24-34); CREATININE 0.69 MG/DL (0.70-1.30); GFR AFRICAN AMERICAN 114 ML/MIN (>=60); GFR NON AFRICAN AMERICAN 98 ML/MIN (>=60); GLUCOSE, SERUM 164 MG/DL (60-99)
[2016-11-16 05:38] LABS: BASOPHILS 0 %; EOSINOPHILS 0 %; HEMOGLOBIN 9.2 g/dL (13.6-17.8); IMMATURE GRANULOCYTES 0.3 %; IMMATURE GRANULOCYTES ABSOLUTE 0.02 10/3/uL (0.0-0.11); LYMPHOCYTES ABSOLUTE 0.36 10/3/uL (0.67-4.30); MEAN CORPUS HGB CONC 32.9 g/dL (32.0-36.0); MEAN CORPUSCULAR HEMOGLOB 30.3 pg (26.0-34.0); MEAN CORPUSCULAR VOLUME 92.1 fL (80-100); MEAN PLATELET VOLUME 9.6 fL (9.2-13.0); MONOCYTES 8.1 %; MONOCYTES ABSOLUTE 0.59 10/3/uL (0.21-1.20); NEUTROPHILS 86.6 %; NEUTROPHILS ABSOLUTE 6.28 10/3/uL (2.02-8.40); PLATELET COUNT 269 10/3/uL (150-400); RBC DISTRIBUTION WIDTH 16.1 % (12.0-16.0); RED CELL COUNT 3.04 10/6/uL (4.7-6.1); WHITE BLOOD CELLS 7.3 10/3/uL (4.5-10.5)
[2016-11-16 05:39] LABS: MANUAL DIFF NO %
[2016-11-16 05:47] LABS: BUN (BLOOD UREA NITROGEN) 16 MG/DL (6-23); CALCIUM, SERUM 8.4 MG/DL (8.5-10.4); CHLORIDE, SERUM 108 MMOL/L (96-112); CO2 (CARBON DIOXIDE) 27 MMOL/L (24-34); CREATININE 0.77 MG/DL (0.70-1.30); GFR AFRICAN AMERICAN 109 ML/MIN (>=60); GFR NON AFRICAN AMERICAN 94 ML/MIN (>=60); GLUCOSE, SERUM 116 MG/DL (60-99); POTASSIUM, SERUM 3.9 MMOL/L (3.5-5.3); SODIUM, SERUM 140 MMOL/L (135-148)
== END 2016-11-17 22:45 | disposition home or self-care (01) | DRG 847 ==
LOC: 4EA 11:38
PROVIDERS: Internal Medicine Hematology & Oncology
DX: Z51.11 Encounter for antineoplastic chemotherapy (principal); C85.80 Other specified types of non-Hodgkin lymphoma, unspecified site; I10 Essential (primary) hypertension; G47.00 Insomnia, unspecified
CPT/HCPCS: 80048; 82962; 83735; 85025; A9270-GY; J1652; J2405; J9000; J9070; J9181; J9310